=== PATIENT | female | born 1995 | race Caucasian/White ===

== ENCOUNTER 2020-10-19 17:50 | Emergency (ER) | payer OTHER ==
[2020-10-19 18:04] VITALS: BMI 25.8
[2020-10-19] MEDS ORDERED: ACETAMINOPHEN 1000 MG/100 ML VIAL (NON FORMULARY) IVPB ONE (18:25)
[2020-10-19] MEDS ORDERED: SODIUM CHLORIDE 1,000 ML IV STA (18:25)
[2020-10-19] MEDS ORDERED: ACETAMINOPHEN INJECTION 100 ML IVPB ONE (18:38)
[2020-10-19 19:07] LABS: BASO % 0.7 % (0-2.0); EOS % 0.4 % (0-4.5); HEMATOCRIT 42.2 % (32.4-45.2); HEMOGLOBIN 14.5 GM/dL (10.7-15.3); LYMPH % 32.2 % (8-40); MCH 30.5 pg (25.7-33.7); MCHC 34.4 g/dl (32.0-36.0); MEAN CELL VOLUME 88.9 fl (80-96); MEAN PLT VOLUME 9.2 fl (7.5-11.1); MONO % 13.7 % (3.8-10.2); PLATELET COUNT 183 10^3/uL (134-434); RBC 4.74 M/mm3 (3.60-5.2); RDW 13.7 % (11.6-15.6); WHITE BLOOD COUNT 4.5 K/mm3 (4.0-10.0)
[2020-10-19 19:11] LABS: EPI CELLS 25 /uL (0-25.1); HCG,QUALITATIVE URINE Negative; HYALINE CASTS 2 /uL (0-3.1); PH,URINE 5.5 (5.0-8.0); URINE APPEARANCE CLEAR; URINE BACTERIA 54 /uL (0-1359); URINE BILIRUBIN NEGATIVE (NEGATIVE); URINE COLOR YELLOW; URINE GLUCOSE (UA) NEGATIVE (NEGATIVE); URINE KETONE TRACE (NEGATIVE); URINE LEUK ESTERASE NEGATIVE (NEGATIVE); URINE NITRITE NEGATIVE (NEGATIVE); URINE PROTEIN NEGATIVE (NEGATIVE); URINE RBC 40 /uL (0-23.9); URINE WBC 4 /uL (0-25.8)
[2020-10-19 19:31] LABS: CHLORIDE 105 mmol/L (98-107); SODIUM 139 mmol/L (136-145)
[2020-10-19 19:33] LABS: CALCIUM 9.3 mg/dL (8.5-10.1)
[2020-10-19 19:35] LABS: ALBUMIN 4.2 g/dl (3.4-5.0); ANION GAP 7 MMOL/L (8-16); BLOOD UREA NITROGEN 12.1 mg/dL (7-18); CO2 27 mmol/L (21-32); GLUCOSE,RANDOM 73 mg/dL (74-106)
[2020-10-19 19:37] LABS: CREATININE 0.8 mg/dL (0.55-1.3); SGOT/AST 13 U/L (15-37); SGPT/ALT 41 U/L (13-61)
[2020-10-19 19:39] LABS: TOT PROT 7.6 g/dl (6.4-8.2)
[2020-10-19 19:40] LABS: ALK PHOS 67 U/L (45-117)
[2020-10-19 19:46] LABS: BILIRUBIN,TOTAL 0.3 mg/dL (0.2-1)
[2020-10-19 21:25] VITALS: BP 120/81; PULSE 86; TEMP 98.3
== END 2020-10-19 21:25 | disposition home or self-care (01) ==
LOC: JER 17:50
PROC: 3E0333Z Introduction of Anti-inflammatory into Peripheral Vein, Percutaneous Approach (ICD-10-PCS; principal; 2020-10-19)
PROC: 3E0337Z Introduction of Electrolytic and Water Balance Substance into Peripheral Vein, Percutaneous Approach (ICD-10-PCS; 2020-10-19)
DX: R11.0 Nausea (principal)
CPT/HCPCS: 36415; 71046-TC-FY; 80053; 81003; 82550; 84484; 84702; 84703; 85025; 87086; 93005; 93010; 99285-25; C9803; J0131; U0003; U0005

== ENCOUNTER 2021-05-29 20:27 | Emergency (ER) | payer OTHER ==
[2021-05-29 20:36] VITALS: BP 114/60; PULSE 84; TEMP 97.9; BMI 25.8
[2021-05-29] MEDS ORDERED: LIDOCAINE VISCOUS 2% ORAL/TOP 15 ML UNIT-DOSE CUP MM ONE (22:17)
[2021-05-29] MEDS ORDERED: LIDOCAINE VISCOUS 2% ORAL/TOP 15 ML UNIT-DOSE CUP ONE (22:31)
== END 2021-05-29 23:39 | disposition home or self-care (01) ==
LOC: JERFT 20:27 → JER 20:27
DX: R07.0 Pain in throat (principal)
CPT/HCPCS: 70360-TC-FY; 70490-TC; 99284-25

== ENCOUNTER 2021-07-23 19:30 | Emergency (ER) | payer OTHER ==
[2021-07-23 19:41] VITALS: BP 112/78; PULSE 81; TEMP 98.3; BMI 18.7
[2021-07-23] MEDS ORDERED: ONDANSETRON *ODT* 4 MG TABLET SL ONE (21:09)
[2021-07-23] MEDS ORDERED: ACETAMINOPHEN 500 MG TABLET (FP) PO ONE (21:10)
[2021-07-23] MEDS ORDERED: ACETAMINOPHEN 500 MG TABLET (FP) ONE (21:12)
[2021-07-23] MEDS ORDERED: ONDANSETRON *ODT* 4 MG TABLET ONE (21:12)
== END 2021-07-23 22:37 | disposition home or self-care (01) ==
LOC: JERFT 19:30
DX: O21.0 Mild hyperemesis gravidarum (principal); Z3A.12 12 weeks gestation of pregnancy
CPT/HCPCS: 99283-25; Q0162

== ENCOUNTER 2022-02-04 07:10 | Inpatient (IN) | payer OTHER ==
[2022-02-04] MEDS ORDERED: OXYTOCIN 30 UNITS in 0.9% NS 30 UNIT/500 ML INFUS.BAG IVPB ONE (08:36)
[2022-02-04 08:44] VITALS: BMI 29.0
[2022-02-04] MEDS ORDERED: OXYTOCIN 30 UNITS in 0.9% NS 30 UNIT/500 ML INFUS.BAG IVPB SCH (09:45)
[2022-02-04] MEDS ORDERED: PROMETHAZINE HCL 25 MG/1 ML VIAL IVPUSH ONE (09:45)
[2022-02-04] MEDS: ELECTROLYTE-148 SOLN 1,000 ML IV SCH ×2 (10:10→12:35)
[2022-02-04] MEDS ORDERED: BUTORPHANOL TARTRATE 2 MG/ML VIAL IVPUSH ONE (10:15)
[2022-02-04] MEDS ORDERED: FENTANYL/BUPIVACAINE/NS/PF - PCEA - 50 ML DISP.SYRIN EP ONE (12:08)
[2022-02-04] MEDS ORDERED: NALOXONE HCL 0.4 MG/ML VIAL IVPUSH PRN (13:02)
[2022-02-04] MEDS ORDERED: FENTANYL/BUPIVACAINE/NS/PF - PCEA - 50 ML DISP.SYRIN EP SCH (13:15)
[2022-02-04] MEDS ORDERED: ACETAMINOPHEN 325 MG TABLET (FP) ONE (14:07)
[2022-02-04] MEDS ORDERED: ACETAMINOPHEN 325 MG TABLET (FP) PO ONE (15:17)
[2022-02-04] MEDS ORDERED: LIDOCAINE HCL 1% PRESERVATIVE FREE - 30ML VIAL ONE (17:27)
[2022-02-04] MEDS ORDERED: OXYTOCIN 20 UNITS in 0.9% NS 20 UNIT/1,000 ML INFUS.BAG IV ONE (17:27)
[2022-02-04] MEDS ORDERED: BENZOCAINE 20% 57 GM BOTTLE TP PRN (19:01)
[2022-02-04] MEDS ORDERED: WITCH HAZEL 50% (TUCKS) 40 PAD/JAR PAD TP PRN (19:01)
[2022-02-04] MEDS ORDERED: BISACODYL 10 MG SUPP.RECT RC PRN (19:01)
[2022-02-04] MEDS ORDERED: METHYLERGONOVINE MALEATE 0.2 MG/1 ML AMP IM PRN (19:01)
[2022-02-04] MEDS ORDERED: BENZOCAINE 28 GM HEMORRHOIDAL OINTMENT TP PRN (19:01)
[2022-02-04] MEDS ORDERED: oxyCODONE HCL 5 MG TABLET PO ONE (19:01)
[2022-02-04] MEDS ORDERED: OXYTOCIN 20 UNITS in 0.9% NS 20 UNIT/1,000 ML INFUS.BAG IV SCH (19:15)
[2022-02-04] MEDS ORDERED: oxyCODONE HCL 5 MG TABLET ONE (19:31)
[2022-02-04 19:56] LABS: CORD BASE EXCESS -4.9 mmol/L (0-2); CORD HCO3 21.1 mmHg (20-29); CORD PCO2 42.5 mmHg (30-78); CORD pH 7.314 (7.14-7.44)
[2022-02-04 19:57] LABS: CORD BASE EXCESS -4.6 mmol/L (0-2); CORD HCO3 23.4 mmHg (20-29); CORD pH 7.254 (7.14-7.44)
[2022-02-04] MEDS: IBUPROFEN 600 MG TABLET (FP) PO PRN (20:40)
[2022-02-04] MEDS: ACETAMINOPHEN 325 MG TABLET (FP) PO PRN (22:00)
[2022-02-05] MEDS: oxyCODONE HCL 5 MG TABLET PO PRN ×4 (00:01→18:36)
[2022-02-05 00:12] LABS: BASO % 0.1 % (0-2.0); HEMOGLOBIN 9.8 GM/dL (10.7-15.3); LYMPH % 11.6 % (8-40); MCHC 34.9 g/dl (32.0-36.0); MEAN CELL VOLUME 86.1 fl (80-96); MEAN PLT VOLUME 8.5 fl (7.5-11.1); MONO % 6.4 % (3.8-10.2); NEUT % 81.9 % (42.8-82.8); PLATELET COUNT 146 10^3/uL (134-434); RBC 3.26 M/mm3 (3.60-5.2); RDW 13.3 % (11.6-15.6); WHITE BLOOD COUNT 11.9 K/mm3 (4.0-10.0)
[2022-02-05] MEDS: IBUPROFEN 600 MG TABLET (FP) PO PRN ×3 (06:31→20:28)
[2022-02-05] MEDS: ACETAMINOPHEN 325 MG TABLET (FP) PO PRN ×2 (07:28→23:47)
[2022-02-05 09:18] LABS: BASO % 0.2 % (0-2.0); EOS % 0.2 % (0-4.5); HEMATOCRIT 22.7 % (32.4-45.2); HEMOGLOBIN 7.8 GM/dL (10.7-15.3); LYMPH % 19.3 % (8-40); MCH 29.3 pg (25.7-33.7); MCHC 34.2 g/dl (32.0-36.0); MEAN CELL VOLUME 85.9 fl (80-96); MEAN PLT VOLUME 9.4 fl (7.5-11.1); MONO % 8.1 % (3.8-10.2); NEUT % 72.2 % (42.8-82.8); PLATELET COUNT 142 10^3/uL (134-434); RBC 2.64 M/mm3 (3.60-5.2); RDW 13.5 % (11.6-15.6); WHITE BLOOD COUNT 8.9 K/mm3 (4.0-10.0)
[2022-02-05 15:58] LABS: BASO % 0.2 % (0-2.0); EOS % 0.3 % (0-4.5); HEMATOCRIT 21.3 % (32.4-45.2); HEMOGLOBIN 7.3 GM/dL (10.7-15.3); LYMPH % 22.4 % (8-40); MCH 29.5 pg (25.7-33.7); MCHC 34.1 g/dl (32.0-36.0); MEAN CELL VOLUME 86.7 fl (80-96); MEAN PLT VOLUME 9.2 fl (7.5-11.1); MONO % 6.8 % (3.8-10.2); NEUT % 70.3 % (42.8-82.8); PLATELET COUNT 164 10^3/uL (134-434); RBC 2.46 M/mm3 (3.60-5.2); RDW 13.6 % (11.6-15.6)
[2022-02-05] MEDS ORDERED: SENNOSIDES/DOCUSATE COMBO (SENNA PLUS) TABLET (UD) PO PRN (22:00)
[2022-02-06 07:54] LABS: BASO % 0.3 % (0-2.0); EOS % 0.2 % (0-4.5); HEMOGLOBIN 9.3 GM/dL (10.7-15.3); LYMPH % 23.8 % (8-40); MCH 30.1 pg (25.7-33.7); MCHC 34.5 g/dl (32.0-36.0); MEAN CELL VOLUME 87.1 fl (80-96); MEAN PLT VOLUME 9.4 fl (7.5-11.1); MONO % 7.2 % (3.8-10.2); NEUT % 68.5 % (42.8-82.8); PLATELET COUNT 140 10^3/uL (134-434); RDW 13.6 % (11.6-15.6); WHITE BLOOD COUNT 8.2 K/mm3 (4.0-10.0)
[2022-02-06 13:06] VITALS: BP 92/55; PULSE 86; RESP 18; TEMP 97.9
== END 2022-02-06 15:30 | disposition home or self-care (01) | DRG 560 ==
LOC: JLDR 07:10 → J3W 20:28
PROVIDERS: ADMIT Family Medicine; ATTEND Family Medicine
PROC: 10E0XZZ Delivery of Products of Conception, External Approach (ICD-10-PCS; principal; 2022-02-04)
PROC: 0UC97ZZ Extirpation of Matter from Uterus, Via Natural or Artificial Opening (ICD-10-PCS; 2022-02-04)
PROC: 3E033VJ Introduction of Other Hormone into Peripheral Vein, Percutaneous Approach (ICD-10-PCS; 2022-02-04)
PROC: 10907ZC Drainage of Amniotic Fluid, Therapeutic from Products of Conception, Via Natural or Artificial Opening (ICD-10-PCS; 2022-02-04)
PROC: 30233N1 Transfusion of Nonautologous Red Blood Cells into Peripheral Vein, Percutaneous Approach (ICD-10-PCS; 2022-02-05)
DX: O48.0 Post-term pregnancy (principal); O72.2 Delayed and secondary postpartum hemorrhage; Z37.0 Single live birth; Z3A.40 40 weeks gestation of pregnancy
CPT/HCPCS: 36415; 36430; 36600; 59409; 80048; 82803; 85025; 85610; 85730; 86780; 86850; 86900; 86901; 86922; C9803-CS; P9058; U0003; U0005

== ENCOUNTER 2022-02-19 18:05 | Emergency (ER) | payer OTHER ==
[2022-02-19 18:36] VITALS: BP 100/64; PULSE 97; RESP 19; TEMP 98.6; BMI 27.4
[2022-02-19 20:25] LABS: EPI CELLS 18 /uL (0-25.1); HYALINE CASTS 2 /uL (0-3.1); URINE APPEARANCE CLEAR; URINE BACTERIA 12 /uL (0-1359); URINE BILIRUBIN NEGATIVE (NEGATIVE); URINE COLOR YELLOW; URINE GLUCOSE (UA) NEGATIVE (NEGATIVE); URINE KETONE NEGATIVE (NEGATIVE); URINE LEUK ESTERASE 1+ (NEGATIVE); URINE NITRITE NEGATIVE (NEGATIVE); URINE PROTEIN NEGATIVE (NEGATIVE); URINE RBC 35 /uL (0-23.9); URINE WBC 28 /uL (0-25.8)
[2022-02-19 20:38] LABS: BASO % 0.6 % (0-2.0); EOS % 1.2 % (0-4.5); HEMATOCRIT 36.3 % (32.4-45.2); HEMOGLOBIN 12.3 GM/dL (10.7-15.3); MCH 29.3 pg (25.7-33.7); MEAN CELL VOLUME 86.1 fl (80-96); MEAN PLT VOLUME 8.7 fl (7.5-11.1); MONO % 5.5 % (3.8-10.2); NEUT % 63.7 % (42.8-82.8); PLATELET COUNT 300 10^3/uL (134-434); RBC 4.21 M/mm3 (3.60-5.2); RDW 13.5 % (11.6-15.6); WHITE BLOOD COUNT 5.8 K/mm3 (4.0-10.0)
[2022-02-19 20:50] LABS: CALCIUM 8.5 mg/dL (8.5-10.1)
[2022-02-19 20:51] LABS: ALBUMIN 3.5 g/dl (3.4-5.0)
[2022-02-19 20:54] LABS: CREATININE 0.8 mg/dL (0.55-1.3)
[2022-02-19 20:55] LABS: BILIRUBIN,TOTAL 0.4 mg/dL (0.2-1); TOT PROT 6.7 g/dl (6.4-8.2)
== END 2022-02-19 22:59 | disposition home or self-care (01) ==
LOC: JER 18:05
DX: O72.2 Delayed and secondary postpartum hemorrhage (principal)
CPT/HCPCS: 36415; 76817-TC; 80053; 81003; 84702; 85025; 86850; 86900; 86901; 87086; 99284-25